=== PATIENT | male | born 1940 | race Caucasian/White ===

== ENCOUNTER 2017-09-18 19:09 | Emergency (ER) | payer MEDICARE, OTHER ==
--- NOTE | 2017-09-18 20:17 | UC ---
HPI Febrile Illness - HPI Summary HPI Summary: Patient is a 77-year-old male presents here with weakness dizziness fever and shaking chills. He states that on 09/16/2017 in the a.m. he had a cystoscopy performed. Later that day he developed fever and chills. Rates that an antibiotic was called in. He was started on Septra double strength twice a day. He has taken 4 doses of that. She still has felt feverish and had had shaking chills. He feels weak and has had nausea. Not had any chest pain. He chronically feels short winded. 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 The patient is a diabetic. He states that his blood sugars have been running in the 100s. He denies any rash. He has no headache. - History of Current Complaint Chief Complaint: UCGeneralIllness Time Seen by Provider: 09/18/17 19:19 Hx Obtained From: Patient Onset/Duration: Started Days Ago Timing: Constant Initial Severity: Moderate Current Severity: Moderate Pain Intensity: 0 Pain Scale Used: 0-10 Numeric Alleviating Factors: Nothing Associated Signs and Symptoms: Chills, Diaphoresis, Nausea - Allergy/Home Medications Allergies/Adverse Reactions: Allergies Allergy/AdvReac Type Severity Reaction Status Date / Time Penicillins Allergy Intermediate Rash Verified 09/18/17 19:25 metformin Allergy GI Upset Verified 09/18/17 19:25 Home Medications: Home Medications Acetaminophen [Tylenol Extra Strength] 1,000 mg 09/18/17 [History] Sulfamethox/Trimethoprim DS* [Bactrim DS 800/160 TAB*] 1 tab 09/18/17 [History] PMH/Surg Hx/FS Hx/Imm Hx Endocrine History: Diabetes Cardiovascular History: Cardiac Disease, Hypertension Respiratory History: Other Other Respiratory History: asbestosis GI/ History: Other Other GI/ History: bladder stones - Surgical History Surgical History: Yes Surgery Procedure, Year, and Place: 2008 GALLBLADDER REMOVAL. EYE SURGERY DETACHED RETINA 98 AND 2005 [facility]. RIGHT PARS PLANA VITRECTOMY. LT PARS PLANA VITRECTOMY. BILATERAL CATARACTS SURGERY. BLADDER STONES- 1995. CYST REMOVAL-[facility]- BUTTOCKS AREA. BILATERAL CARPAL TUNNEL RELEASE - Social History Alcohol Use: Occasionally Substance Use Type: None Smoking Status (MU): Former Smoker Amount Used/How Often: 1 PPD X 32 YEARS When Did the Patient Quit Smoking/Using Tobacco: 1995 Review of Systems Constitutional: Fever, Chills, Fatigue Skin: Negative Eyes: Negative ENT: Negative Respiratory: Shortness Of Breath - chronic Gastrointestinal: Nausea Motor: Negative Neurovascular: Negative Musculoskeletal: Negative Neurological: Negative All Other Systems Reviewed And Are Negative: Yes Physical Exam Triage Information Reviewed: Yes Appearance: Well-Appearing, No Pain Distress, Well-Nourished Vital Signs: Initial Vital Signs Temp 98.9 F 09/18/17 19:18 Pulse 69 09/18/17 19:18 Resp 18 09/18/17 19:18 BP 128/51 09/18/17 19:18 Pulse Ox 98 09/18/17 19:18 Vital Signs Reviewed: Yes Eyes: Positive: Conjunctiva Clear ENT: Positive: Hearing grossly normal. Negative: Nasal congestion, Nasal drainage, Tonsillar swelling, Tonsillar exudate, Sinus tenderness, Uvula midline Neck: Positive: Supple, Nontender, No Lymphadenopathy Respiratory: Positive: Lungs clear, Normal breath sounds, No respiratory distress, No accessory muscle use Cardiovascular: Positive: RRR, No Murmur Abdomen Description: Positive: Nontender, No Organomegaly, Soft. Negative: CVA Tenderness (R), CVA Tenderness (L) Bowel Sounds: Positive: Present Musculoskeletal: Positive: ROM Intact, No Edema Neurological: Positive: Alert Psychological Exam: Normal Skin Exam: Normal Diagnostics - Laboratory Diagnostic Studies Completed/Ordered: BS 169. UA + rbcs, (-) leuks, (-) nitrite - Radiology No standard instances Xray Interpretation: Positive (See Comments) - . BILATERAL PLEURAL PLAQUES AND FIBROTIC CHANGES CONSISTENT WITH THE PATIENT'S HISTORY OF PRIOR ASBESTOS EXPOSURE. IF THE PATIENT HAS PRIOR OUTSIDE FILMS THESE WOULD BE HELPFUL FOR COMPARISON. 2. BLUNTING OF THE RIGHT COSTOPHRENIC ANGLE MOST CONSISTENT WITH PLEURAL THICKENING OR SMALL PLEURAL EFFUSION. Radiology Interpretation Completed By: Radiologist - EKG Cardiac Rate: NL Cardiac Rhythm: Sinus: Normal Ectopy: None ST Segment: Normal Course/Dx - Course Course Of Treatment: declines going to ER for furhter evaluation or blood work - Diagnoses Clinic Provider Diagnoses: Weakness. I suspect he has a UTI that is being treated Discharge - Sign-Out/Discharge Documenting (check all that apply): Patient Departure - Discharge Plan Condition: Stable Disposition: HOME Patient Education Materials: Weakness (ED) Referrals: Jose J Meraz MD [Primary Care Provider] - 2 Days Additional Instructions: To ER for new or worsening symptoms continue antibiotic rest fluids Your chest XR report is pending I suggest you have a copy of the official report sent to the group that follows your asbestosis exposure - Billing Disposition and Condition Condition: STABLE Disposition: Home
[2017-09-18] MEDS ORDERED: Ciprofloxacin TAB* 500 MG PO ONE (20:44)
--- NOTE | 2017-09-18 21:02 | RAD ---
INDICATION: Weakness dizziness fever and chills, history of asbestosis. COMPARISON: There are no prior studies available for comparison. TECHNIQUE: Dual-energy PA and lateral views of the chest were obtained. FINDINGS: The heart is within normal limits in size. Mediastinal and hilar contours appear within normal limits. There is mild prominence of the interstitial markings and numerous bilateral pleural based nodules most consistent with plaques. These are both calcified and noncalcified. These limit evaluation for an infiltrate. There is also mild blunting of the right costophrenic angle consistent with a small pleural effusion or pleural thickening. IMPRESSION: 1. BILATERAL PLEURAL PLAQUES AND FIBROTIC CHANGES CONSISTENT WITH THE PATIENT'S HISTORY OF PRIOR ASBESTOS EXPOSURE. IF THE PATIENT HAS PRIOR OUTSIDE FILMS THESE WOULD BE HELPFUL FOR COMPARISON. 2. BLUNTING OF THE RIGHT COSTOPHRENIC ANGLE MOST CONSISTENT WITH PLEURAL THICKENING OR SMALL PLEURAL EFFUSION. R0
[2017-09-18 21:08] VITALS: BP 132/50
--- NOTE | 2017-09-20 18:21 | UC ---
- Progress Note Progress Note: 09/20/2017 Pt seen on 09/18/2017 w/ possible UTI Urine culture: no growth. No change Katie Simms PA-C Discharge - Sign-Out/Discharge Documenting (check all that apply): Patient Departure - D/c home - Discharge Plan Condition: Stable Disposition: HOME Patient Education Materials: Weakness (ED) Referrals: Jose J Meraz MD [Primary Care Provider] - 2 Days Additional Instructions: To ER for new or worsening symptoms continue antibiotic rest fluids Your chest XR report is pending I suggest you have a copy of the official report sent to the group that follows your asbestosis exposure - Billing Disposition and Condition Condition: STABLE Disposition: Home
== END 2017-09-18 21:05 | disposition home or self-care (01) ==
LOC: UCEAST 19:09
DX: R53.1 Weakness (principal); R42 Dizziness and giddiness; R50.9 Fever, unspecified; Z88.0 Allergy status to penicillin; Z88.8 Allergy status to other drugs, medicaments and biological substances; Z87.891 Personal history of nicotine dependence
CPT/HCPCS: 71046; 81003; 87086; 93005; 99202; A9270-GY; G0463

== ENCOUNTER 2021-02-27 06:12 | Observation (INO) ==
[~2021-02-27 06:12] MED LIST: Buffered Lidocaine 1% SYRIN 1 ml INTRADERM ONE; Famotidine IV 10 MG/ML 2 ml VIAL (20 mg) IV ONE; Lactated Ringers 1000 ml BAG 1,000 ML IV SCH
[2021-02-27] MEDS ORDERED: Famotidine IV 10 MG/ML 2 ml VIAL (20 mg) ONE (06:30)
[2021-02-27] MEDS ORDERED: Clindamycin 900 MG/D5W BAG 900 MG/50 ML BAG IVPB ONE (06:30)
[2021-02-27] MEDS ORDERED: Ropivacaine 5 MG/ML 20 ML VIAL 0.5% (100 MG) ONE (07:04)
[2021-02-27] MEDS ORDERED: fentaNYL 100 mcg/2 ml 50 MCG/ML VIAL ONE (07:23)
[2021-02-27] MEDS ORDERED: Midazolam 2 mg/2 ml VIAL 1 mg/ml 2 ml VIAL (2 mg) ONE (07:24)
[2021-02-27] MEDS ORDERED: Phenylephrine IV 10 MG/ML 1 ml VIAL ONE (07:29)
[2021-02-27] MEDS ORDERED: Lidocaine 2% PF 5 ML VIAL ONE (07:29)
[2021-02-27] MEDS ORDERED: EPHEDrine (Pressors) 50 MG/ML VIAL ONE (08:51)
[2021-02-27] MEDS ORDERED: diPHENhydraMINE 25 mg TAB PO PRN (09:05)
[2021-02-27] MEDS ORDERED: Lactulose 30 ml UDC PO PRN (09:05)
[2021-02-27] MEDS ORDERED: diPHENhydraMINE IV 50 MG/ML 1 ml VIAL (BENADRYL) IV PRN (09:05)
[2021-02-27] MEDS ORDERED: Ondansetron ODT 4 mg TAB 4 MG TAB PO PRN (09:05)
[2021-02-27] MEDS ORDERED: Magnesium Hydroxide LIQ 30 ML UDC PO PRN (09:05)
[2021-02-27] MEDS ORDERED: Morphine 2 MG/ML SYRINGE IV PRN (09:05)
[2021-02-27] MEDS ORDERED: Ondansetron 4 mg VIAL 2 MG/ML 2 ml VIAL IV PRN ×2 (09:05→09:44)
[2021-02-27] MEDS ORDERED: Dextrose 50% Syringe 50 ml 25 GM/50 ML SYRINGE IV PUSH PRN ×2 (09:12→10:55)
[2021-02-27] MEDS ORDERED: Naloxone 0.4 mg VIAL 0.4 mg/ml 1 ml VIAL IV PRN (09:44)
[2021-02-27] MEDS ORDERED: fentaNYL 100 mcg/2 ml 50 MCG/ML VIAL IV PRN (09:44)
[2021-02-27] MEDS ORDERED: Propofol 10 MG/ML 20 ML BTL ONE (10:01)
[2021-02-27] MEDS: Lactated Ringers 1000 ml BAG 1,000 ML IV SCH ×2 (12:20→23:16)
[2021-02-27] MEDS: Clindamycin 600 MG/D5W BAG 600 MG/50 ML BAG IV SCH (16:47)
[2021-02-27] MEDS ORDERED: Insulin GLARGINE 100 un/ml 10 ml VIAL SUBCUT SCH (21:00)
[2021-02-27] MEDS: Magnesium Hydroxide LIQ 30 ML UDC PO SCH (22:18)
[2021-02-28] MEDS: Clindamycin 600 MG/D5W BAG 600 MG/50 ML BAG IV SCH ×2 (01:25→07:58)
[2021-02-28 06:26] LABS: Hematocrit 35 % (42-52); Hemoglobin 11.9 g/dL (14.0-18.0); Mean Platelet Volume 8.3 fL (7.4-10.4); Platelet Count 162 10^3/uL (150-450)
[2021-02-28 06:46] LABS: Calcium 8.4 mg/dL (8.6-10.3); Potassium 4.3 mmol/L (3.5-5.0); eGFR CKD-EPI 89.6 (>60)
[2021-02-28] MEDS: Magnesium Hydroxide LIQ 30 ML UDC PO SCH (08:34)
[2021-02-28] MEDS ORDERED: Vitamin THERAPEUTIC TAB PO SCH (09:00)
[2021-02-28] MEDS ORDERED: Aspirin EC 81 mg TAB.EC (enteric coated) PO SCH (09:00)
[2021-02-28 11:54] VITALS: BP 108/58
== END 2021-02-28 13:30 | disposition home or self-care (01) ==
LOC: SSU 06:12 → OR 06:12
PROVIDERS: ADMIT Orthopaedic Surgery Adult Reconstructive Orthopaedic Surgery; ATTEND Orthopaedic Surgery Adult Reconstructive Orthopaedic Surgery

== ENCOUNTER 2024-02-06 16:08 | Observation (INO) ==
[2024-02-06 17:14] LABS: Venous Bicarbonate HCO3 28.3 mmol/L (24-28)
[2024-02-06] MEDS: Lactated Ringers SEPSIS* BAG 2,190 ML IV ONE (17:15)
[2024-02-06 17:17] LABS: ABS Lymphocytes 0.3 10^3/uL (1.0-4.8); ABS Monocytes 0.6 10^3/uL (0.0-1.1); ABS Neutrophils 6.3 10^3/uL (1.5-7.6); ABS Nucleated RBC 0.01 10^3/ul; Eosinophil % 0.5 %; Hematocrit 45.6 % (38-53); Hemoglobin 15.5 g/dL (13.2-16.3); Lymphocyte % 4.5 %; Mean Corpuscular Hemoglobin 30.4 pg (27-33); Mean Corpuscular Hgb Conc 34.1 g/dL (31-36); Mean Corpuscular Volume 89.3 fL (80-97); Mean Platelet Volume 7.4 fL (7.5-11.2); Nucleated Red Blood Cells % 0.1 %/100WBC (0.0-0.8); Platelet Count 214 10^3/uL (150-450); Red Blood Count 5.11 10^6/uL (4.06-5.63); Red Cell Distribution Width 13.8 % (12-17); White Blood Count 7.3 10^3/uL (3.6-10.2)
[2024-02-06] MEDS: Azithromycin 500 mg/250 ml NS 500 MG/250 ML BAG IVPB ONE (17:39)
[2024-02-06] MEDS: Cefepime 2 GM in Dextrose 2 GM/50 ML BAG IV ONE (17:39)
[2024-02-06 17:42] LABS: Activated Partial Thrombo Time 27.8 seconds (26.0-38.0); INR 1.01 (0.85-1.14)
[2024-02-06 17:55] LABS: Albumin 3.9 g/dL (3.5-5.7); Albumin/Globulin Ratio 1.1 (1-3); C Reactive Protein 42.33 mg/L (<8.01); Calcium 9.3 mg/dL (8.6-10.3); Creatinine, Serum 0.92 mg/dL (0.67-1.17); Globulin 3.5 g/dL (2-4); Potassium 4.5 mmol/L (3.5-5.0); Total Bilirubin 0.9 mg/dL (0.2-1.0); Total Protein 7.4 g/dL (6.4-8.9)
[2024-02-06 18:16] LABS: Urine Appearance Clear; Urine Bilirubin Negative (Negative); Urine Blood Negative (Negative); Urine Color Light-Yellow; Urine Glucose 4+ (>=1000 mg/dL) (Negative); Urine Ketones Negative (Negative); Urine Nitrite Negative (Negative); Urine Protein Negative (Negative); Urine Urobilinogen Negative (Negative)
[2024-02-06 18:56] LABS: High Sensitivity Troponin 1 Hr 28 pg/mL (<20)
[2024-02-06] MEDS ORDERED: Ondansetron 4 mg VIAL 2 MG/ML 2 ml VIAL IV PRN (20:02)
[2024-02-06] MEDS ORDERED: Polyethylene Glycol 3350 17 GM PACKET PO PRN (20:02)
[2024-02-06] MEDS ORDERED: Senna TAB 8.6 mg TAB PO PRN (20:02)
[2024-02-06] MEDS ORDERED: Dextrose 50% Syringe 50 ml 25 GM/50 ML SYRINGE IV PUSH PRN (21:28)
[2024-02-06] MEDS: Insulin GLARGINE 100 un/ml 10 ml VIAL SUBCUT SCH (22:45)
[2024-02-06] MEDS: Enoxaparin 40 MG/0.4 ML SYR SUBCUT SCH (22:45)
[2024-02-07] MEDS: Remdesivir 100 mg Vial 200 MG in NS 0.9% 250 ml 210 ML IV ONE (01:39)
[2024-02-07 06:30] LABS: INR 1.14 (0.85-1.14)
[2024-02-07 07:07] LABS: Albumin 3.4 g/dL (3.5-5.7); Albumin/Globulin Ratio 1.1 (1-3); Calcium 8.5 mg/dL (8.6-10.3); Creatinine, Serum 0.8 mg/dL (0.67-1.17); Globulin 3.1 g/dL (2-4); Potassium 4.1 mmol/L (3.5-5.0); Total Bilirubin 0.7 mg/dL (0.2-1.0); Total Protein 6.5 g/dL (6.4-8.9); eGFR CKD-EPI 87.3 (>60)
[2024-02-07] MEDS: Aspirin EC 81 mg TAB.EC (enteric coated) PO SCH (08:29)
[2024-02-07] MEDS: NF: DAPAGLIFLOZIN 5 MG TAB (NF) PO SCH (08:29)
[2024-02-07] MEDS: CMCS: Epleronone 25 mg TAB (NF) PO SCH (08:29)
[2024-02-07 09:11] LABS: Magnesium 1.7 mg/dL (1.9-2.7)
[2024-02-07] MEDS: cefTRIAXone 1 gm/50 mL D5W 1 GM/50 ML BAG IV SCH (09:47)
[2024-02-07 10:07] LABS: Hematocrit 40.7 % (38-53); Hemoglobin 14.2 g/dL (13.2-16.3); Mean Corpuscular Hemoglobin 30.9 pg (27-33); Mean Corpuscular Hgb Conc 34.8 g/dL (31-36); Mean Corpuscular Volume 88.7 fL (80-97); Mean Platelet Volume 7.3 fL (7.5-11.2); Platelet Count 178 10^3/uL (150-450); Red Blood Count 4.59 10^6/uL (4.06-5.63)
[2024-02-07] MEDS: Magnesium Sulfate 2 gm BAG 2 GM/50 ML BAG IVPB ONE (11:44)
[2024-02-07] MEDS: Remdesivir 100 mg Vial 100 MG in NS 0.9% 250 ml 230 ML IV SCH (20:54)
[2024-02-07] MEDS: Benzocaine/Menthol LOZ PO PRN (22:33)
[2024-02-08 06:36] LABS: ABS Lymphocytes 0.7 10^3/uL (1.0-4.8); ABS Monocytes 0.7 10^3/uL (0.0-1.1); ABS Neutrophils 2.8 10^3/uL (1.5-7.6); ABS Nucleated RBC 0.01 10^3/ul; Eosinophil % 0.7 %; Hematocrit 40.5 % (38-53); Hemoglobin 14.1 g/dL (13.2-16.3); Lymphocyte % 15.8 %; Mean Corpuscular Volume 88.5 fL (80-97); Mean Platelet Volume 7.1 fL (7.5-11.2); Nucleated Red Blood Cells % 0.2 %/100WBC (0.0-0.8); Platelet Count 174 10^3/uL (150-450); Red Blood Count 4.57 10^6/uL (4.06-5.63); Red Cell Distribution Width 14.3 % (12-17); White Blood Count 4.2 10^3/uL (3.6-10.2)
[2024-02-08 06:49] LABS: INR 1.14 (0.85-1.14)
[2024-02-08 08:01] LABS: Albumin 3.1 g/dL (3.5-5.7); Albumin/Globulin Ratio 1.1 (1-3); Calcium 8.3 mg/dL (8.6-10.3); Creatinine, Serum 0.65 mg/dL (0.67-1.17); Globulin 2.8 g/dL (2-4); Magnesium 1.8 mg/dL (1.9-2.7); Potassium 3.8 mmol/L (3.5-5.0); Total Bilirubin 0.5 mg/dL (0.2-1.0); Total Protein 5.9 g/dL (6.4-8.9); eGFR CKD-EPI 92.9 (>60)
[2024-02-08 14:51] VITALS: BP 133/70
== END 2024-02-08 16:30 | disposition home or self-care (01) ==
LOC: EDHOLD 16:08 → ED 16:08 → SUATTDRO 20:02 → MED 23:46
PROVIDERS: ADMIT Internal Medicine; ATTEND Student in an Organized Health Care Education/Training Program